=== PATIENT | female | born 1990 | race Caucasian/White ===

== ENCOUNTER 2020-04-12 10:59 | Emergency (ER) | payer OTHER, SELFPAY ==
[2020-04-12 11:17] VITALS: BP 136/77; PULSE 84; RESP 16; TEMP 37.2; O2SAT 100; BMI 22.8
[2020-04-12 11:32] LABS: Glucose Urine UA NEG (NEG); Leukocyte Esterase Urine NEG (NEG); Nitrite Urine NEG (NEG); PH 8.5 (5.0-8.0); Specific Gravity - Urine 1.015 (1.005-1.025); Urine Blood NEG (NEG); Urine Ketones NEG (NEG); Urine Protein NEG (NEG-TRACE)
[2020-04-12 11:33] LABS: Appearance Urine CLEAR; Color Urine YELLOW
--- NOTE | 2020-04-12 11:37 | ED_ITS ---
HPI - Female Genitourinary General Chief complaint: Urogenital-Female Stated complaint: STD CHECK Time Seen by Provider: 04/12/20 11:37 Related Data Allergies Allergy/AdvReac Type Severity Reaction Status Date / Time No Known Allergies Allergy Unverified 03/27/20 19:48 [No Known Allergies*] Physical Exam Vital Signs and I&O and Narrative: Vital Signs and I&O: Vital Signs Temp 98.9 F 04/12/20 11:17 Pulse 84 04/12/20 11:17 Resp 16 04/12/20 11:17 BP 136/77 04/12/20 11:17 Pulse Ox 100 04/12/20 11:17 Intake & Output 04/11/20 04/12/20 04/12/20 18:59 06:59 18:59 Weight 70.307 kg Body Mass Index 22.8 MDM - Female Genitourinary Lab Data Labs: Lab Results 04/12/20 Range/Units 11:21 Urine Color YELLOW Urine Appearance CLEAR Urine pH 8.5 H (5.0-8.0) Ur Specific [place] 1.015 (1.005-1.025) Urine Protein NEG (NEG-TRACE) MG/DL Urine Glucose (UA) NEG (NEG) MG/DL Urine Ketones NEG (NEG) MG/DL Urine Blood NEG (NEG) Urine Nitrite NEG (NEG) Ur Leukocyte Esterase NEG (NEG)
--- NOTE | 2020-04-12 12:08 | ED_ITS ---
HPI - Female Genitourinary General Chief complaint: Urogenital-Female Stated complaint: STD CHECK Time Seen by Provider: 04/12/20 11:37 History of Present Illness HPI Narrative: patient complains of noticing a small bump in the left labial area today, she has had no fever no chills no discharge no abdominal pain no pelvic pain no dysuria, she has no new partner and her partner is asymptomatic with no history of herpes or any bumps Related Data Previous Rx's Medication Instructions Recorded valacyclovir [Valtrex] 1,000 mg PO BID 10 Days #20 tab 04/12/20 Allergies Allergy/AdvReac Type Severity Reaction Status Date / Time No Known Allergies Allergy Unverified 03/27/20 19:48 [No Known Allergies*] Review of Systems Review of Systems: there is no fever no chills, no other bumps no pain with urination or frequency of urination no vaginal discharge no abdominal pain no pelvic pain no back pain no nausea no vomiting PMFSH Past Medical History Source: nursing notes reviewed Social History Social History Alcohol intake: unknown Smoking Status: Unknown if ever smoked Use of substances other than those prescribed or required for medical reasons: Unknown Advance Directives: No Advance Directives Information Provided: No Physical Exam Vital Signs and I&O and Narrative: Vital Signs and I&O: Vital Signs Temp 98.9 F 04/12/20 11:17 Pulse 84 04/12/20 11:17 Resp 16 04/12/20 11:17 BP 136/77 04/12/20 11:17 Pulse Ox 100 04/12/20 11:17 Intake & Output 04/11/20 04/12/20 04/12/20 18:59 06:59 18:59 Weight 70.307 kg Body Mass Index 22.8 patient is comfortable, no acute distress A&O x3 and cooperative Neck is supple Respiratory no acute distress Abdomen soft and nontender Genital exam there is a small papule which is not red it does not appear to be vesicular is very small in the left side of the labia there are no surrounding lesions it is not red it is not warm there is no discharge visible externally, no other lesions, internal exam was deferred Extremities full range of motion x4 neuro A&O x3 Course Course Hospital Course: this is not likely to be herpes but is possible that it is the start of a herpes infection so culture was done and patient given a script for Valtrex to use if more lesions developing diagnosis becomes obvious MDM - Female Genitourinary Lab Data Labs: Lab Results 04/12/20 Range/Units 11:21 Urine Color YELLOW Urine Appearance CLEAR Urine pH 8.5 H (5.0-8.0) Ur Specific [place] 1.015 (1.005-1.025) Urine Protein NEG (NEG-TRACE) MG/DL Urine Glucose (UA) NEG (NEG) MG/DL Urine Ketones NEG (NEG) MG/DL Urine Blood NEG (NEG) Urine Nitrite NEG (NEG) Ur Leukocyte Esterase NEG (NEG) Discharge Plan Discharge Clinical Impression: Herpes genitalis Patient Disposition: Home, Self-Care Additional Instructions: there was a very small bump in vaginal area which is most likely irritation from shaving, but is possibly an early lesion of herpes We sent a herpes culture but most important if you develop more red bumps in the area you should start the Valtrex prescription which I gave you Do not start it if no other lesions developed follow with primary care doctor or drawing kiln operator doctor, or [facility] if you have concerns about STDs Prescriptions: New valacyclovir [Valtrex] 1 gram tablet 1,000 mg PO BID 10 Days Qty: 20 RF: 0 Interventions: ED Discharge Assessment Last Done: 04/12/20 12:40 Discharge Date/Time: 04/12/20 12:41
== END 2020-04-12 12:41 | disposition home or self-care (01) ==
PROVIDERS: Physician Assistant Medical; Emergency Provider Emergency Medicine
DX: A60.00 Herpesviral infection of urogenital system, unspecified (principal)
CPT/HCPCS: 36415; 81003; 87255; 99283; 99284

== ENCOUNTER → 2020-09-23 14:09 | Outpatient (BNVA) | payer OTHER, SELFPAY | PROVIDERS: PCP Internal Medicine; Visit Provider Obstetrics & Gynecology | DX: Z34.90 Encounter for supervision of normal pregnancy, unspecified, unspecified trimester (principal) | CPT/HCPCS: 99212 ==

== ENCOUNTER 2020-09-24 10:07 | Outpatient (REF) | payer OTHER, SELFPAY ==
--- NOTE | ~2020-09-24 | US_ITS ---
EXAMINATION: US OBSTETRICAL ULTRASOUND CLINICAL INFORMATION: Uncertain LMP. Check size and dates. COMPARISON: None. LMP: Unknown. TECHNIQUE: Transabdominal and transvaginal first trimester OB ultrasound FINDINGS: The uterus is anteverted and measures 8.6 x 4.4 x 5 cm in dimension. There is an intrauterine gestational sac with yolk sac. Mean sac diameter measures 0.61 cm suggesting gestational age of 5 weeks 1 day. No pole is seen. There is a 4 x 3 x 3 mm cyst in the anterior uterine body. No other focal uterine lesion is seen. The right ovary measures 3 x 1.7 x 2 cm and is normal-appearing. The left ovary measures 4 x 2.7 x 3.7 cm. There is a 2.4 x 2 x 2.9 cm minimally complex left ovarian cyst. There is trace fluid in the left pelvis. US/US OB <= 14 weeks fetus IMPRESSION: Intrauterine gestational sac and yolk sac. Mean sac diameter suggests gestational age of 5 weeks 1 day. No pole seen, question secondary to early gestational age. 2.4 x 2 x 2.9 cm slightly complex left ovarian cyst probably representing a corpus luteal cyst.
--- NOTE | ~2020-09-24 | US_ITS ---
EXAMINATION: US OBSTETRICAL ULTRASOUND CLINICAL INFORMATION: Uncertain LMP. Check size and dates. COMPARISON: None. LMP: Unknown. TECHNIQUE: Transabdominal and transvaginal first trimester OB ultrasound FINDINGS: The uterus is anteverted and measures 8.6 x 4.4 x 5 cm in dimension. There is an intrauterine gestational sac with yolk sac. Mean sac diameter measures 0.61 cm suggesting gestational age of 5 weeks 1 day. No pole is seen. There is a 4 x 3 x 3 mm cyst in the anterior uterine body. No other focal uterine lesion is seen. The right ovary measures 3 x 1.7 x 2 cm and is normal-appearing. The left ovary measures 4 x 2.7 x 3.7 cm. There is a 2.4 x 2 x 2.9 cm minimally complex left ovarian cyst. There is trace fluid in the left pelvis. US/US OB transvaginal IMPRESSION: Intrauterine gestational sac and yolk sac. Mean sac diameter suggests gestational age of 5 weeks 1 day. No pole seen, question secondary to early gestational age. 2.4 x 2 x 2.9 cm slightly complex left ovarian cyst probably representing a corpus luteal cyst.
== END 2020-09-24 10:08 | disposition home or self-care (01) ==
LOC: HO.US 10:07
PROVIDERS: Visit Provider Obstetrics & Gynecology
DX: Z34.90 Encounter for supervision of normal pregnancy, unspecified, unspecified trimester (principal)
CPT/HCPCS: 76801; 76817

== ENCOUNTER → 2020-09-29 11:29 | Outpatient (BNVA) | payer OTHER, SELFPAY | PROVIDERS: Visit Provider Obstetrics & Gynecology ==

== ENCOUNTER → 2020-10-03 08:16 | Outpatient (BNVA) | payer OTHER, SELFPAY | PROVIDERS: Visit Provider Obstetrics & Gynecology | DX: Z64.0 Problems related to unwanted pregnancy (principal) | CPT/HCPCS: 99212 ==

== ENCOUNTER → 2020-10-15 11:14 | Outpatient (BNVA) | payer OTHER, SELFPAY | PROVIDERS: Visit Provider Obstetrics & Gynecology | CPT/HCPCS: 99212 ==

== ENCOUNTER → 2020-11-03 15:01 | Outpatient (BNVA) | payer OTHER, SELFPAY | PROVIDERS: PCP Internal Medicine; Visit Provider Obstetrics & Gynecology ==

== ENCOUNTER 2021-04-20 09:29 | Outpatient (REF) | payer OTHER, SELFPAY ==
[2021-04-20 10:23] LABS: COVID-19 Test Negative (Negative)
== END 2021-04-20 09:30 | disposition home or self-care (01) ==
LOC: HO.LAB 09:29
PROVIDERS: Visit Provider Internal Medicine
DX: Z20.822 Contact with and (suspected) exposure to COVID-19 (principal)
CPT/HCPCS: 36415; 87635; C9803

== ENCOUNTER 2021-11-27 14:20 | Emergency (ER) | payer OTHER, SELFPAY ==
[2021-11-27 14:25] VITALS: BP 113/63; PULSE 115; RESP 20; TEMP 37.8; O2SAT 97; BMI 23.6
[2021-11-27] MEDS: Acetaminophen 325 MG TABLET 650 MG PO (14:33)
[2021-11-27 14:41] LABS: COVID-19 Test Positive (Negative); IDNOW Serial# 55D5AD1C
[2021-11-27 14:57] LABS: IDNOW Serial# 55D5AD1C; Influenza A Negative (Negative); Influenza B2 Negative (Negative)
--- NOTE | 2021-11-27 15:25 | ED.FEVER ---
HPI - Fever General Chief Complaint: Fever Stated Complaint: Fever/Body aches/Nausea Time Seen by Provider: 11/27/21 15:25 Source: patient Mode of arrival: ambulatory Limitations: no limitations History of Present Illness HPI Narrative: 31-year-old female presents to the ER with acute onset of headache, body aches, fever and chills that started this morning. She generally does not feel well. She felt like she had a fever this morning, came to the ER was found have a fever 101. She was given Tylenol but vomited it back up. She denies any abdominal pain or diarrhea. She reports some mild ongoing nausea. She denies chance of and states she is on her menses. She denies any known sick contacts. She has not vaccinated for COVID-19. She says her breathing is ?short but she has no chest pain. She has a slight cough but is not bringing up any phlegm. MD elicited complaint: fever, malaise and weakness Onset (ago): hour(s) Measured temperature: 101 F Exacerbating factors: nothing Relieving factors: nothing Associated symptoms: chills, myalgias, headache, sore throat, cough, shortness of breath, nausea and vomiting Treatments prior to arrival fever: none Related Data Previous Rx's Medication Instructions Recorded acetaminophen 650 mg 650 mg PO Q8H PRN #60 tab 10/03/20 tablet,extended release (Tylenol 8 Hour) ibuprofen 800 mg tablet 800 mg PO Q8H PRN #60 tab 10/03/20 misoprostol 200 mcg tablet 800 mcg VAGINAL ONCE #4 tab 10/03/20 oxycodone 5 mg capsule 5 mg PO Q6H PRN #10 cap 10/03/20 promethazine 25 mg tablet 25 mg PO Q6H PRN #10 tab 10/03/20 ondansetron 4 mg disintegrating 4 mg PO Q6H PRN #7 tab 11/27/21 tablet Allergies Allergy/AdvReac Type Severity Reaction Status Date / Time No Known Allergies Allergy Verified 11/03/20 15:01 [No Known Allergies*] Review of Systems Review of Systems: Constitutional: + Fever, + Chills ENT/Mouth: + sore throat, + Rhinorrhea Cardiovascular: No Chest Pain, + SOB, No Orthopnea, No Edema Respiratory: +Cough, No Sputum, No Wheezing, + dyspnea Gastrointestinal: + Nausea, + Vomiting, No Diarrhea, No abdominal Pain Musculoskeletal: No joint pain, + Myalgias Skin: No Skin Lesions, No rash Neuro: + Weakness, No Numbness, No Dizziness, + Headache Psych: + Anxiety/Panic Heme/Lymph: No Bruising, No Lymphadenopathy PMFSH Past Medical History Medical History Migraines Unwanted Social History Social History Alcohol intake: current Alcohol intake frequency: holidays/special occasions only Advance Directives: No Advance Directives Information Provided: No Gender identity: Female Physical Exam Vital Signs: Vital Signs: Last Vital Signs Temp 100.1 F 11/27/21 14:25 Pulse 115 H 11/27/21 14:25 Resp 20 11/27/21 14:25 BP 113/63 11/27/21 14:25 Pulse Ox 97 11/27/21 14:25 BMI result Body Mass Index 23.6 Appearance: Alert. Oriented X3. No acute distress. HEENT: normal inspection. moist mucus membranes. CVS: Normal heart rate and rhythm. Pulses normal. Respiratory: No respiratory distress. Lungs CTAB. Skin: Skin warm and dry. Normal skin color. Normal skin turgor. No rashes. Extremities: no LE edema, no calf tenderness. Neuro: Oriented X 3. Grossly normal, nonfocal Course Course Course Narrative: 31 y/o female presenting with hot/cold flashes, chills, body aches since this morning. Unvaccianated for COVID. Tachycardic and febrile on arrival. Given tylenol. Patient found to be COVID +. SpO2 97%. Lungs are CTAB. She has been counseled on symptomatic management and return precautions, encouraged to monitor her SpO2 with an at home pulse oximeter. Stable for d/c home. MDM - Fever Lab Data Labs: Lab Results 11/27/21 11/27/21 Range/Units 14:30 14:30 COVID-19 (LINDA) Positive A (Negative) COVID-19 Clin Com See Note Influenza Type A (NANCY) Negative (Negative) Influenza Type B (NANCY) Negative (Negative) Influenza A & B Note See Note Critical Care Time Critical Care Time Critical Care Time: No Discharge Plan Discharge Clinical Impression: COVID-19 Patient Disposition: Home, Self-Care Instructions: Covid-19 Viral Syndrome and Novel Coronavirus (ED) Hey/Ath Additional Instructions: You were found to be COVID-19 POSITIVE today. Your exam and oxygen levels were normal. Rest. Drink plenty of fluids. Do not go out in public for the next 7- 10 days. Take over the counter cold/flu medications as needed for your symptoms. Take Tylenol and/or Motrin as needed for fevers and body aches. Follow up with your doctor this week. If you develop new or worsening symptoms call 911 or come back to the ER for further evaluation. Prescriptions: New ondansetron 4 mg tablet,disintegrating 4 mg PO Q6H PRN (Reason: nausea and vomiting) Qty: 7 0RF No Action misoprostol 200 mcg tablet 800 mcg vaginal ONCE Qty: 4 1RF ibuprofen 800 mg tablet 800 mg PO Q8H PRN (Reason: pain) Qty: 60 1RF acetaminophen [Tylenol 8 Hour] 650 mg tablet extended release 650 mg PO Q8H PRN (Reason: pain) Qty: 60 0RF oxycodone 5 mg capsule 5 mg PO Q6H PRN (Reason: pain) Qty: 10 0RF promethazine 25 mg tablet 25 mg PO Q6H PRN (Reason: nausea and vomiting) Qty: 10 0RF Stand Alone Forms: Work/School Release Interventions: ED Discharge Assessment Last Done: 11/27/21 15:37 Discharge Date/Time: 11/27/21 15:38
[2021-11-27 15:46] VITALS: TEMP 38.3
== END 2021-11-27 15:38 | disposition home or self-care (01) ==
PROVIDERS: Emergency Provider Internal Medicine
DX: U07.1 COVID-19 (principal)
CPT/HCPCS: 87502; 87635; 99283

== ENCOUNTER 2022-06-24 15:15 | Emergency (ER) | payer OTHER, SELFPAY ==
[2022-06-24 16:14] VITALS: BP 154/97; PULSE 96; RESP 18; TEMP 37.1; O2SAT 98; BMI 24.3
--- NOTE | 2022-06-24 16:14 | ED.URI ---
HPI - URI/Sore Throat General Chief Complaint: Upper Respiratory Symptoms <LINDA Romero Last Filed: 06/24/22 16:17> Stated Complaint: Dizziness, diff breathing, vomiting <LINDA Romero Last Filed: 06/24/22 16:17> Time Seen by Provider: 06/24/22 17:33 <LINDA Romero - Last Filed: 06/24/22 16:17> Source: patient <LINDA Tate Last Filed: 06/24/22 18:52> Mode of arrival: ambulatory <LINDA Tate Last Filed: 06/24/22 18:52> Limitations: no limitations <LINDA Tate Last Filed: 06/24/22 18:52> History of Present Illness HPI Narrative: 32-year-old female presents to the ER for evaluation of 2 days of not feeling well. She states she has had cough, runny nose, sore throat, body aches and headache. She also has been nauseous and vomiting several times per day. She states she is unable to keep down anything. She denies any associated abdominal pain or fevers. She states her menses are regular, only 3 days at a time. Unsure when her last menstrual cycle was. She may be . She denies any vaginal bleeding or discharge. <LINDA Tate Last Filed: 06/24/22 18:52> MD elicited complaint: cough, sore throat and other ( nausea vomiting) <LINDA Tate Last Filed: 06/24/22 18:52> Onset (ago): day(s) (2) <LINDA Tate Last Filed: 06/24/22 18:52> Consistency: progressively worsening <LINDA Tate Last Filed: 06/24/22 18:52> Severity: moderate <LINDA Tate Last Filed: 06/24/22 18:52> Exacerbating factors: nothing <LINDA Tate Last Filed: 06/24/22 18:52> Relieving factors: nothing <LINDA Tate Last Filed: 06/24/22 18:52> Associated symptoms: myalgias, headache, nasal congestion, sore throat, cough, nausea and vomiting <LINDA Tate Last Filed: 06/24/22 18:52> Treatments prior to arrival: none <LINDA Tate Last Filed: 06/24/22 18:52> Related Data Home Medications: Previous Rx's Medication Instructions Recorded acetaminophen 650 mg 650 mg PO Q8H PRN pain #60 tabs 10/03/20 tablet,extended release (Tylenol 8 Hour) ibuprofen 800 mg tablet 800 mg PO Q8H PRN pain #60 tabs 10/03/20 misoprostol 200 mcg tablet 800 mcg vaginal ONCE #4 tabs 10/03/20 oxycodone 5 mg capsule 5 mg PO Q6H PRN pain #10 caps 10/03/20 promethazine 25 mg tablet 25 mg PO Q6H PRN nausea and 10/03/20 vomiting #10 tabs ondansetron 4 mg disintegrating 4 mg PO Q6H PRN nausea and 11/27/21 tablet vomiting #7 tabs ondansetron 4 mg disintegrating 4 mg PO Q8H PRN nausea and 06/24/22 tablet vomiting #10 tabs <LINDA Romero Last Filed: 06/24/22 16:17> Allergies/Adverse Reactions: Allergies Allergy/AdvReac Type Severity Reaction Status Date / Time No Known Allergies Allergy Verified 11/03/20 15:01 [No Known Allergies*] <LINDA Romero Last Filed: 06/24/22 16:17> Review of Systems Review of Systems: Constitutional: No Fever, + Chills ENT/Mouth: + sore throat, No Rhinorrhea, No Swallowing Difficulty Cardiovascular: No Chest Pain, No SOB, No Orthopnea, No Edema Respiratory: + Cough, No Sputum, No Wheezing, No dyspnea Gastrointestinal: + Nausea, + Vomiting, No Diarrhea, No abdominal Pain Genitourinary: No Dysuria, No Urinary Frequency, No Hematuria Musculoskeletal: No joint pain, No Myalgias Skin: No Skin Lesions, No rash Neuro: + Weakness, No Numbness, No Dizziness, + Headache Psych: No Anxiety/Panic, No Depression Heme/Lymph: No Bruising, No Lymphadenopathy Endocrine: No Polyuria, No Polydipsia <LINDA Tate Last Filed: 06/24/22 18:52> [facility] Past Medical History Medical History: Medical History Migraines Unwanted <LINDA Romero - Last Filed: 06/24/22 16:17> Social History Social History: Social History Alcohol intake: current Alcohol intake frequency: holidays/special occasions only Advance Directives: No Advance Directives Information Provided: No Gender identity: Female <LINDA Romero - Last Filed: 06/24/22 16:17> Physical Exam Vital Signs: Vital Signs: Last Vital Signs Temp 98.7 F 06/24/22 16:14 Pulse 96 06/24/22 16:14 Resp 18 06/24/22 16:14 BP 154/97 H 06/24/22 16:14 Pulse Ox 98 06/24/22 16:14 O2 Del Method 06/24/22 16:14 BMI result Body Mass Index 24.3 <LINDA Romero - Last Filed: 06/24/22 16:17> Vital Signs: Last Vital Signs Temp 98.7 F 06/24/22 16:14 Pulse 96 06/24/22 16:14 Resp 18 06/24/22 16:14 BP 154/97 H 06/24/22 16:14 Pulse Ox 98 06/24/22 16:14 O2 Del Method 06/24/22 16:14 BMI result Body Mass Index 24.3 <LINDA Tate - Last Filed: 06/24/22 18:52> Appearance: Alert. Oriented X3. No acute distress. Eyes: Pupils equal, round and reactive to light. ENT: Pharynx normal. Moist mucous membranes. Neck: Normal inspection. Neck supple. CVS: Normal heart rate and rhythm. Pulses normal. Respiratory: No respiratory distress. Breath sounds normal. Abdomen: Soft and nontender. +BS x4 Skin: Skin warm and dry. Normal skin color. Normal skin turgor. No rashes. Extremities: No lower extremity edema. Neuro: Oriented X 3. No motor deficit. No sensory deficit. <LINDA Tate - Last Filed: 06/24/22 18:52> Course Course Course Narrative: RME- 16:17PM - 32yoF presenting ot the ED c c/o subjective fevers/chills/fatigue/malaise, lightheadedness, sore throat, nasal congestion/rhinorrhea, cough, nausea/vomiting for the past 2 days worse today. Reports that she is unable to keep anything down. Denies any other symptoms complaints or concerns at this time. Plan: Labs, UA, test, chest x-ray, COVID/RSV/flu swab. Patient is stable. Patient will be sent back to the waiting room for further evaluation treatment in the ER. <LINDA Romero - Last Filed: 06/24/22 16:17> Reevaluation(s) Reevaluation #1: Patient found to be with a beta hCG of 13,000. Rest of her lab workup was unremarkable. She was advised of her diagnosis. She has history of a 6-year-old daughter at home. she will start a vitamin.She is negative For COVID, flu, RSV. Her symptoms most likely due to the viral illness on top of 1st trimester nausea vomiting. Will prescribe p.r.n. Zofran. 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 <LINDA Tate - Last Filed: 06/24/22 18:52> Medications Administered Discontinued Medications Generic Name Dose Route Start Last Admin Trade Name Freq PRN Reason Stop Dose Admin Sodium Chloride 1,000 mls @ 999 mls/hr 06/24/22 17:45 06/24/22 18:00 Ns IV 06/24/22 18:45 999 mls/hr .Q1H1M HAILY Administration Ondansetron HCl 4 mg 06/24/22 17:33 06/24/22 17:59 Ondansetron Hcl 4 Mg/2 Ml Vial IVPUSH 06/24/22 17:34 4 mg ONCE ONE Administration <LINDA Romero - Last Filed: 06/24/22 16:17> Medications Administered Discontinued Medications Generic Name Dose Route Start Last Admin Trade Name Freq PRN Reason Stop Dose Admin Sodium Chloride 1,000 mls @ 999 mls/hr 06/24/22 17:45 06/24/22 18:00 Ns IV 06/24/22 18:45 999 mls/hr .Q1H1M HAILY Administration Ondansetron HCl 4 mg 06/24/22 17:33 06/24/22 17:59 Ondansetron Hcl 4 Mg/2 Ml Vial IVPUSH 06/24/22 17:34 4 mg ONCE ONE Administration <LINDA Tate - Last Filed: 06/24/22 18:52> Medical Decision Making Lab Data Result Diagrams: : 06/24/22 17:11 06/24/22 17:11 <LINDA Romero - Last Filed: 06/24/22 16:17> Labs: Lab Results 06/24/22 06/24/22 06/24/22 Range/Units 17:06 17:06 17:11 WBC 10.9 H (4.8-10.8) X10*3/uL RBC 4.62 (4.20-5.50) X10*6/uL Hgb 13.3 (12.0-16.0) g/dl Hct 38.6 (37.0-47.0) % MCV 83.5 (80.0-98.0) fL MCH 28.8 (27.0-33.0) pg MCHC 34.5 (31.0-35.0) g/dl RDW 12.8 (11.0-16.0) % Plt Count 217 (160-400) X10*3/uL MPV 11.1 (9.4-12.3) fL Immature Gran % (Auto) 0.4 (0.0-0.4) % Neut % (Auto) 74.9 H (45-73) % Lymph % (Auto) 14.5 L (20-40) % Holmes % (Auto) 7.1 (2-11) % Eos % (Auto) 2.6 (0-4) % Baso % (Auto) 0.5 (0-2) % Lymph # (Auto) 1.6 (1.2-4.9) X10*3/uL Holmes # (Auto) 0.8 (0.1-1.2) X10*3/uL Eos # (Auto) 0.3 (0.0-0.4) X10*3/uL Baso # (Auto) 0.1 (0.0-0.2) X10*3/uL Abs Immat Gran (auto) 0.04 H (0.00-0.03) X10*3/uL Absolute Neuts (auto) 8.2 (2.0-8.3) x10*3/uL Absolute Nucleated RBC 0.000 (0.0-0.012) X10*3/uL Nucleated RBC % (auto) 0.0 (0.0-0.2) /100WBC Sodium (135-145) mmol/L Potassium (3.3-5.1) mmol/L Chloride (96-108) mmol/L Carbon Dioxide (22-29) mmol/L Anion Gap (12-20) BUN (9-16) mg/dL Creatinine (0.5-1.4) mg/dL Estim Creat Clear Calc Estimated GFR Random Glucose (60-115) mg/dL Calcium (8.4-10.2) mg/dL Magnesium (1.6-2.6) mg/dL Total Bilirubin (0.0-1.0) mg/dL AST (5-31) U/L ALT (0-31) U/L Alkaline Phosphatase (39-117) U/L Total Protein (6.5-8.0) g/dL Albumin (3.5-5.0) g/dL Beta HCG, Quant mIU/mL Urine Color Yellow Urine Appearance Clear Urine pH 7.0 (5.0-9.0) Ur Specific [place] 1.015 (1.005-1.025) Urine Protein Negative (Neg-Trace) mg/dL Urine Glucose (UA) Negative (Negative) mg/dL Urine Ketones Trace (Negative) mg/dL Urine Blood Negative (Negative) Urine Nitrite Negative (Negative) Ur Leukocyte Esterase Negative (Negative) Influenza Type A (PCR) NEGATIVE (Negative) Influenza Type B (PCR) NEGATIVE (Negative) RSV RNA Qual (PCR) NEGATIVE (Negative) SARS-CoV-2 RNA (RT-PCR) NEGATIVE (Negative) 06/24/22 Range/Units 17:11 WBC (4.8-10.8) X10*3/uL RBC (4.20-5.50) X10*6/uL Hgb (12.0-16.0) g/dl Hct (37.0-47.0) % MCV (80.0-98.0) fL MCH (27.0-33.0) pg MCHC (31.0-35.0) g/dl RDW (11.0-16.0) % Plt Count (160-400) X10*3/uL MPV (9.4-12.3) fL Immature Gran % (Auto) (0.0-0.4) % Neut % (Auto) (45-73) % Lymph % (Auto) (20-40) % Holmes % (Auto) (2-11) % Eos % (Auto) (0-4) % Baso % (Auto) (0-2) % Lymph # (Auto) (1.2-4.9) X10*3/uL Holmes # (Auto) (0.1-1.2) X10*3/uL Eos # (Auto) (0.0-0.4) X10*3/uL Baso # (Auto) (0.0-0.2) X10*3/uL Abs Immat Gran (auto) (0.00-0.03) X10*3/uL Absolute Neuts (auto) (2.0-8.3) x10*3/uL Absolute Nucleated RBC (0.0-0.012) X10*3/uL Nucleated RBC % (auto) (0.0-0.2) /100WBC Sodium 135 (135-145) mmol/L Potassium 3.9 (3.3-5.1) mmol/L Chloride 104 (96-108) mmol/L Carbon Dioxide 25 (22-29) mmol/L Anion Gap 10 L (12-20) BUN 6 L (9-16) mg/dL Creatinine 0.61 (0.5-1.4) mg/dL Estim Creat Clear Calc 137.0 Estimated GFR > 60 Random Glucose 101 (60-115) mg/dL Calcium 9.1 (8.4-10.2) mg/dL Magnesium 1.9 (1.6-2.6) mg/dL Total Bilirubin 0.5 (0.0-1.0) mg/dL AST 13 (5-31) U/L ALT 9 (0-31) U/L Alkaline Phosphatase 53 (39-117) U/L Total Protein 6.9 (6.5-8.0) g/dL Albumin 3.9 (3.5-5.0) g/dL Beta HCG, Quant 88802 mIU/mL Urine Color Urine Appearance Urine pH (5.0-9.0) Ur Specific [place] (1.005-1.025) Urine Protein (Neg-Trace) mg/dL Urine Glucose (UA) (Negative) mg/dL Urine Ketones (Negative) mg/dL Urine Blood (Negative) Urine Nitrite (Negative) Ur Leukocyte Esterase (Negative) Influenza Type A (PCR) (Negative) Influenza Type B (PCR) (Negative) RSV RNA Qual (PCR) (Negative) SARS-CoV-2 RNA (RT-PCR) (Negative) <LINDA Romero - Last Filed: 06/24/22 16:17> Lab Results 06/24/22 06/24/22 06/24/22 Range/Units 17:06 17:06 17:11 WBC 10.9 H (4.8-10.8) X10*3/uL RBC 4.62 (4.20-5.50) X10*6/uL Hgb 13.3 (12.0-16.0) g/dl Hct 38.6 (37.0-47.0) % MCV 83.5 (80.0-98.0) fL MCH 28.8 (27.0-33.0) pg MCHC 34.5 (31.0-35.0) g/dl RDW 12.8 (11.0-16.0) % Plt Count 217 (160-400) X10*3/uL MPV 11.1 (9.4-12.3) fL Immature Gran % (Auto) 0.4 (0.0-0.4) % Neut % (Auto) 74.9 H (45-73) % Lymph % (Auto) 14.5 L (20-40) % Holmes % (Auto) 7.1 (2-11) % Eos % (Auto) 2.6 (0-4) % Baso % (Auto) 0.5 (0-2) % Lymph # (Auto) 1.6 (1.2-4.9) X10*3/uL Holmes # (Auto) 0.8 (0.1-1.2) X10*3/uL Eos # (Auto) 0.3 (0.0-0.4) X10*3/uL Baso # (Auto) 0.1 (0.0-0.2) X10*3/uL Abs Immat Gran (auto) 0.04 H (0.00-0.03) X10*3/uL Absolute Neuts (auto) 8.2 (2.0-8.3) x10*3/uL Absolute Nucleated RBC 0.000 (0.0-0.012) X10*3/uL Nucleated RBC % (auto) 0.0 (0.0-0.2) /100WBC Sodium (135-145) mmol/L Potassium (3.3-5.1) mmol/L Chloride (96-108) mmol/L Carbon Dioxide (22-29) mmol/L Anion Gap (12-20) BUN (9-16) mg/dL Creatinine (0.5-1.4) mg/dL Estim Creat Clear Calc Estimated GFR Random Glucose (60-115) mg/dL Calcium (8.4-10.2) mg/dL Magnesium (1.6-2.6) mg/dL Total Bilirubin (0.0-1.0) mg/dL AST (5-31) U/L ALT (0-31) U/L Alkaline Phosphatase (39-117) U/L Total Protein (6.5-8.0) g/dL Albumin (3.5-5.0) g/dL Beta HCG, Quant mIU/mL Urine Color Yellow Urine Appearance Clear Urine pH 7.0 (5.0-9.0) Ur Specific [place] 1.015 (1.005-1.025) Urine Protein Negative (Neg-Trace) mg/dL Urine Glucose (UA) Negative (Negative) mg/dL Urine Ketones Trace (Negative) mg/dL Urine Blood Negative (Negative) Urine Nitrite Negative (Negative) Ur Leukocyte Esterase Negative (Negative) Influenza Type A (PCR) NEGATIVE (Negative) Influenza Type B (PCR) NEGATIVE (Negative) RSV RNA Qual (PCR) NEGATIVE (Negative) SARS-CoV-2 RNA (RT-PCR) NEGATIVE (Negative) 06/24/22 Range/Units 17:11 WBC (4.8-10.8) X10*3/uL RBC (4.20-5.50) X10*6/uL Hgb (12.0-16.0) g/dl Hct (37.0-47.0) % MCV (80.0-98.0) fL MCH (27.0-33.0) pg MCHC (31.0-35.0) g/dl RDW (11.0-16.0) % Plt Count (160-400) X10*3/uL MPV (9.4-12.3) fL Immature Gran % (Auto) (0.0-0.4) % Neut % (Auto) (45-73) % Lymph % (Auto) (20-40) % Holmes % (Auto) (2-11) % Eos % (Auto) (0-4) % Baso % (Auto) (0-2) % Lymph # (Auto) (1.2-4.9) X10*3/uL Holmes # (Auto) (0.1-1.2) X10*3/uL Eos # (Auto) (0.0-0.4) X10*3/uL Baso # (Auto) (0.0-0.2) X10*3/uL Abs Immat Gran (auto) (0.00-0.03) X10*3/uL Absolute Neuts (auto) (2.0-8.3) x10*3/uL Absolute Nucleated RBC (0.0-0.012) X10*3/uL Nucleated RBC % (auto) (0.0-0.2) /100WBC Sodium 135 (135-145) mmol/L Potassium 3.9 (3.3-5.1) mmol/L Chloride 104 (96-108) mmol/L Carbon Dioxide 25 (22-29) mmol/L Anion Gap 10 L (12-20) BUN 6 L (9-16) mg/dL Creatinine 0.61 (0.5-1.4) mg/dL Estim Creat Clear Calc 137.0 Estimated GFR > 60 Random Glucose 101 (60-115) mg/dL Calcium 9.1 (8.4-10.2) mg/dL Magnesium 1.9 (1.6-2.6) mg/dL Total Bilirubin 0.5 (0.0-1.0) mg/dL AST 13 (5-31) U/L ALT 9 (0-31) U/L Alkaline Phosphatase 53 (39-117) U/L Total Protein 6.9 (6.5-8.0) g/dL Albumin 3.9 (3.5-5.0) g/dL Beta HCG, Quant 01099 mIU/mL Urine Color Urine Appearance Urine pH (5.0-9.0) Ur Specific [place] (1.005-1.025) Urine Protein (Neg-Trace) mg/dL Urine Glucose (UA) (Negative) mg/dL Urine Ketones (Negative) mg/dL Urine Blood (Negative) Urine Nitrite (Negative) Ur Leukocyte Esterase (Negative) Influenza Type A (PCR) (Negative) Influenza Type B (PCR) (Negative) RSV RNA Qual (PCR) (Negative) SARS-CoV-2 RNA (RT-PCR) (Negative) <LINDA Tate - Last Filed: 06/24/22 18:52> Critical Care Time Critical Care Time Critical Care Time: No <LINDA Tate - Last Filed: 06/24/22 18:52> Discharge Plan Discharge Clinical Impression: , Acute viral syndrome <LINDA Romero Last Filed: 06/24/22 16:17> Patient Disposition: Home, Self-Care <LINDA Romero - Last Filed: 06/24/22 16:17> Instructions: (ED), Viral Syndrome (ED) <LINDA Romero - Last Filed: 06/24/22 16:17> Additional Instructions: Your lab workup today was unremarkable. You tested negative for influenza, COVID, and RSV. Your hormone was 12,950, which could be anywhere from 5-11 weeks gestation. Recommend following up with OBGYN. Name and number below. take a vitamin daily. Take Tylenol as needed for headaches and body aches. Take the prescribed medication as needed for nausea vomiting. Also recommend [id number] Unisom to help prevent nausea and vomiting associated with . <LINDA Romero - Last Filed: 06/24/22 16:17> Prescriptions: New ondansetron 4 mg tablet,disintegrating 4 mg PO Q8H PRN (Reason: nausea and vomiting) Qty: 10 0RF No Action ondansetron 4 mg tablet,disintegrating 4 mg PO Q6H PRN (Reason: nausea and vomiting) Qty: 7 0RF misoprostol 200 mcg tablet 800 mcg vaginal ONCE Qty: 4 1RF ibuprofen 800 mg tablet 800 mg PO Q8H PRN (Reason: pain) Qty: 60 1RF acetaminophen [Tylenol 8 Hour] 650 mg tablet extended release 650 mg PO Q8H PRN (Reason: pain) Qty: 60 0RF oxycodone 5 mg capsule 5 mg PO Q6H PRN (Reason: pain) Qty: 10 0RF promethazine 25 mg tablet 25 mg PO Q6H PRN (Reason: nausea and vomiting) Qty: 10 0RF <LINDA Romero - Last Filed: 06/24/22 16:17> Referrals: Howard Warren MD [Physician] - <LINDA Romero - Last Filed: 06/24/22 16:17>
[2022-06-24 17:24] LABS: MANUAL DIFF FLAG NO
[2022-06-24 17:27] LABS: Appearance Urine Clear; Color Urine Yellow; Glucose Urine UA Negative (Negative); Leukocyte Esterase Urine Negative (Negative); Nitrite Urine Negative (Negative); Specific Gravity - Urine 1.015 (1.005-1.025); Urine Blood Negative (Negative); Urine Ketones Trace mg/dL (Negative); Urine Protein Negative (Neg-Trace)
[2022-06-24 17:27] LABS: Basophils Absolute Auto 0.1 X10*3/uL (0.0-0.2); Basophils Percent Auto 0.5 % (0-2); Eosinophils Absolute Auto 0.3 X10*3/uL (0.0-0.4); Eosinophils Percent Auto 2.6 % (0-4); Hematocrit 38.6 % (37.0-47.0); Hemoglobin 13.3 g/dl (12.0-16.0); Imm Gran Abs Auto 0.04 X10*3/uL (0.00-0.03); Imm Gran Pct Auto 0.4 % (0.0-0.4); Lymphocytes Absolute Auto 1.6 X10*3/uL (1.2-4.9); Lymphocytes Percent Auto 14.5 % (20-40); Mean Corpuscular HGB Conc 34.5 g/dl (31.0-35.0); Mean Corpuscular Hemoglobin 28.8 pg (27.0-33.0); Mean Corpuscular Volume 83.5 fL (80.0-98.0); Mean Platelet Volume 11.1 fL (9.4-12.3); Monocytes Absolute Auto 0.8 X10*3/uL (0.1-1.2); Monocytes Percent Auto 7.1 % (2-11); Neutrophils Absolute Auto 8.2 x10*3/uL (2.0-8.3); Neutrophils Percent Auto 74.9 % (45-73); Platelet Count 217 X10*3/uL (160-400); Red Blood Count 4.62 X10*6/uL (4.20-5.50); Red Cell Distribution Width 12.8 % (11.0-16.0); White Blood Count 10.9 X10*3/uL (4.8-10.8)
[2022-06-24 17:45] LABS: Alanine Aminotransferase 9 U/L (0-31); Albumin Level 3.9 g/dL (3.5-5.0); Alkaline Phosphatase 53 U/L (39-117); Anion Gap 10 (12-20); Aspartate Amino Transferase 13 U/L (5-31); Bilirubin Total 0.5 mg/dL (0.0-1.0); Blood Urea Nitrogen 6 mg/dL (9-16); Calcium 9.1 mg/dL (8.4-10.2); Carbon Dioxide 25 mmol/L (22-29); Chloride 104 mmol/L (96-108); Estimated Glomerular Filt Rate > 60; Glucose Random 101 mg/dL (60-115); HCG Quantitative 12950 mIU/mL; Magnesium 1.9 mg/dL (1.6-2.6); Potassium 3.9 mmol/L (3.3-5.1); Sodium 135 mmol/L (135-145); Total Protein 6.9 g/dL (6.5-8.0)
[2022-06-24] MEDS: ondansetron HCL 4 MG/2 ML VIAL IVPUSH (17:59)
[2022-06-24] MEDS: 0.9 % Sodium Chloride 1,000 ML 999 ML IV (18:00)
[2022-06-24 18:02] LABS: Influenza A PCR NEGATIVE (Negative); Influenza B PCR NEGATIVE (Negative); Resp Syncy Virus RNA Qual PCR NEGATIVE (Negative); SARS COV2 PCR INHOUSE NEGATIVE (Negative)
== END 2022-06-24 19:39 | disposition home or self-care (01) ==
PROVIDERS: Physician Assistant Medical; Emergency Provider Internal Medicine
DX: B34.9 Viral infection, unspecified (principal); J06.9 Acute upper respiratory infection, unspecified; R42 Dizziness and giddiness; Z20.822 Contact with and (suspected) exposure to COVID-19; Z79.899 Other long term (current) drug therapy
CPT/HCPCS: 0241U; 36415; 80053; 81003; 83735; 84702; 85025; 96374; 99283; 99284; J2405

== ENCOUNTER 2024-11-24 20:55 | Emergency (ER) | payer OTHER, SELFPAY ==
[2024-11-24 21:09] VITALS: BP 146/78; PULSE 130; O2SAT 98; BMI 24.2
[2024-11-24 21:19] VITALS: BP 135/84; PULSE 122; RESP 20; TEMP 37.2; O2SAT 97
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
[2024-11-24] MEDS: Acetaminophen 325 MG TABLET 975 MG PO (22:07)
[2024-11-24 22:14] VITALS: BP 135/84; PULSE 122; RESP 20; TEMP 37.2; O2SAT 97
== END 2024-11-24 22:14 | disposition home or self-care (01) ==
PROVIDERS: Emergency Provider Emergency Medicine
DX: F10.129 Alcohol abuse with intoxication, unspecified (principal)
CPT/HCPCS: 99283; 99284

== ENCOUNTER 2025-05-31 10:56 | Outpatient (REF) | payer MEDICAID, SELFPAY ==
--- OUTSIDE RECORDS SUMMARY | 2025-05-31 10:15 | XMS_ITS | Encounter Summary ---
Author Organization [employer] Address [address] [place] [address] [address], [place] [address] Care Team Providers Care Agile Test Lead Name Role Phone Joselin Hogan NP Primary Care Provider [phone] Reason for Referral * Consultation (Routine) - Authorized Specialty Diagnoses / Procedures Referred By Contlio t Referred To Contact Dental Margin Analyst / Dentistry Diagnoses Healthcare maintenance Joselin Hogan NP [address] [place] [address] Phone: tel: fax: Referral ID Status Reason Start Date Expiration Date Visits Requested Visits Authorized [id number] Authorized Consult and Treat 05/31/2025 05/31/2026 1 1 Encounter Details Date Type Department Care Team (Latest Contact Info) Description 05/31/2025 10:15 AM EST Office Visit [facility] MEDICINE [address] [place] [phone] Joselin Hogan NP [address] [place], [place] [phone] Healthcare maintenance (Primary Dx); Fatigue, unspecified type; Routine screening for STI (sexually transmitted infection); History of gestational diabetes; Migraine without aura and without status migrainosus, not intractable; Encounter for initial prescription of contraceptive pills; Chronic pain of both knees Social History Tobacco Use Types Packs/Day Years Used Date Smoking Tobacco: Never Passive Smoke Exposure: Never Smokeless Tobacco: Never Tobacco Cessation:Counseling Given: Not Answered Depression Answer Date Recorded Patient Health Questionnaire-9 Score 0 05/31/2025 Patient Health Questionnaire-9 Score 0 05/31/2025 Last PHQ-9: Questionnaire Data Not on file 1 07/31/2024 Housing Stability Answer Date Recorded What is your housing situation today? I have liana knutson 05/31/[address] you li ve. Do you have problems with any of the following? None of the above 05/31/2025 Food Insecurity Answer Date Recorded Within the past 12 months, y ou worried that your food would run out before you got money to buy more: Never True 05/31/2025 Within the past 12 months,th e food you bought just didn't last and you didn't have enough money to get more: Never True Transportation Answer Date Recorded In the past 12 months, has l ack of transportation kept you from medical appts, meetings, work or from getting things needed for daily living? No 05/31/2025 Utilities Answer Date Recorded In the past 12 months, has t he electric, gas, oil or water company threatened to shut off services in your home? No 05/31/2025 Depression Answer Date Recorded Patient Health Questionnaire-2 Score 0 05/31/2025 Internet Access Answer Date Recorded Internet Access Q1 Yes 05/31/2025 Internet Access Q2 Not on file 05/31/2025 Comments Unknown Sex and Gender Information Value Date Recorded Sex Assigned at Female 05/23/2025 11:49 AM EST Legal Sex Female 2:47 AM EDT Gender Identity Female 05/23/2025 11:49 AM EST Sexual Orientation Straight 05/23/2025 11 :49 AM EST documented as of this encounter Last Filed Vital Signs Vital Sign Reading Time Taken Comments Blood Pressure 128/78 05/31/2025 10:11 AM EST Pulse 84 05/31/2025 10:11 AM EST Temperature 36.6 C (97.9 F) 05/31/2025 10:11 AM EST Respiratory Rate 16 05/31/2025 10:11 AM EST Oxygen Saturation 99% 05/31/2025 10:11 AM EST Inhaled Oxygen Concentration - - Weight 82.8 kg (182 lb 8 oz) 05/31/2025 10:11 AM EST Height 173.9 cm (5' 8.46 ) 05/31/2025 10:[address] Body Mass Index 27.38 05/31/2025 10:11 AM EST documented in this encounter Functional Status * Over the past 2 weeks, how often have you been bothered by any of the following problems? Question Answer Date of Assessment Author Patient Health Questionnaire-2 Score 0 05/31/2025 11:04 AM Prisca Guy [place] * Little interest or pleasure in doing things Answer Date of Assessment Author Not at all 05/31/2025 11:04 AM Prisca Aguilar [place], [place] * Feeling down, depressed, or hopeless Answer Date of Assessment Author Not at all 05/31/2025 11:04 AM Prisca Aguilar [place], [place] * Trouble falling or staying asleep, or sleeping too much Answer Date of Assessment Author Not at all 05/31/2025 11:04 AM Prisca Aguilar [place], [place] * Feeling tired or having little energy Answer Date of Assessment Author Not at all 05/31/2025 11:04 AM Prisca Aguilar [place], [place] * Poor appetite or overeating Answer Date of Assessment Author Not at all 05/31/2025 11:04 AM Prisca Aguilar [place], [place] * Feeling bad about yourself - or that you are a failure or have let yourself or your family down Answer Date of Assessment Author Not at all 05/31/2025 11:04 AM Prisca Aguilar [place], [place] * Trouble concentrating on things, such as reading the newspaper or watching television Answer Date of Assessment Author Not at all 05/31/2025 11:04 AM Prisca Aguilar [place], [place] * Moving or speaking so slowly that other people could have noticed? Or the opposite - being so fidgety or restless that you have been moving around a lot more than usual. Answer Date of Assessment Author Not at all 05/31/2025 11:04 AM Prisca Aguilar [place], [place] * Thoughts that you would be better off or hurting yourself in some way Answer Date of Assessment Author Not at all 05/31/2025 11:04 AM Prisca Aguilar [place], [place] * Patient Health Questionnaire-9 Score Answer Date of Assessment Author 0 05/31/2025 11:04 AM Prisca Aguilar [place], [place] * Over the last 2 weeks, how often have you been bothered by any of the following problems? Question Answer Date of Assessment Author Feeling nervous, anxious, or on edge 0 05/31/2025 11:05 AM Prisca Menchaca [place] Not being able to stop or control worrying 0 05/31/2025 11:05 AM Prisca Menchaca MA Worrying too much about different things 0 05/31/2025 11:05 AM Prisca Menchaca [place] Trouble relaxing 0 05/31/2025 11:05 AM Prisca Menchaca [place] Being so restless that it is hard to sit still 0 05/31/2025 11:05 AM Prisca Menchaca [place] Becoming easily annoyed or irritable 0 05/31/2025 11:05 AM Prisca Menchaca [place] Feeling afraid as if something awful might happen 0 05/31/2025 11:05 AM Prisca Egan [place] DIANNE-7 Total Score 0 05/31/2025 11:05 AM Prisca Menchaca [place] documented as of this encounter Miscellaneous Notes * Assessment & Plan Note - Joselin Hogan NP - 05/31/2025 10:15 AM ESTAssociated Problem(s): History of gestational diabetes - Gestational diabetes resolved . - Ordered A1c to assess current glycemic status. Orders: Hemoglobin A1c; Future * Assessment & Plan Note - Joselin Hogan NP - 05/31/2025 10:15 AM ESTAssociated Problem(s): Migraine without aura and without status migrainosus, not intractable - Migraine diagnosis confirmed, longstanding since adolescence. - Prescribed naproxen for acute migraine management. Advised use of NSAID with caffeine for enhanced efficacy. Offered prescription for migraine medication. Orders: naproxen (Naprosyn) 500 MG tablet; 4-6 hrs as needed for migraine. Take with a caffeine beverage documented in this encounter Plan of Treatment Scheduled Orders Name Type Priority Associated Diagnoses Orde r Schedule CBC auto differential Lab Routine Healthcare maintenance Expected: 05/31/2025 (Approximate), Expires: 05/31/2026 Comprehensive Metabolic Panel Lab Routine Healthcare maintenance Expected: 05/31/2025 (Approximate), Expires: 05/31/2026 Hemoglobin A1c Lab Routine History of gestational diabetes Expected: 05/31/2025 (Approximate), Expires: 05/31/2026 HIV-1/2 Antigen and Antibodies, Fourth Generation, with Reflexes Lab Routine Routine screening for STI (sexually transmitted infection) Expected: 05/31/2025 (Approximate), Expires: 05/31/2026 Hepatitis C Antibody with Reflex to HCV, RNA, Quantitative, Real-Time PCR Lab Routine Routine screening for STI (sexually transmitted infection) Expected: 05/31/2025, Expires: 05/31/2026 Vitamin D, 25-Hydroxy, Total, Immunoassay Lab Routine Routine screening for STI (sexually transmitted infection) Expected: 05/31/2025 (Approximate), Expires: 05/31/2026 TSH with Reflex to Free T4 Lab Routine Fatigue, unspecified type Expected: 05/31/2025 (Approximate), Expires: 05/31/2026 hCG, Total, Quantitative Lab Routine Healthcare maintenance Expected: 05/31/2025 (Approximate), Expires: 05/31/2026 Scheduled Referrals Name Type Priority Associated Diagnoses Orde r Schedule Referral to [facility] Dental Adult Outpatient Referral Routine Healthcare maintenance Expected: 05/31/2025 (Approximate), Expires: 05/31/2026 documented as of this encounter Visit Diagnoses Diagnosis Healthcare maintenance- Primary Fatigue, unspecified type Routine screening for STI (sexually transmitted infection) Screening examination for venereal disease History of gestational diabetes Personal history of other genital system and obstetric disorders Migraine without aura and without status migrainosus, not intractable Encounter for initial prescription of contraceptive pills Chronic pain of both knees documented in this encounter Additional Health Concerns Assessment Noted Time PHQ-9 Depression Total Score: 0 05/31/20 11:04 AM EST documented as of this encounter Care Teams Agile Test Lead Relationship Specialty Start Date End Date Joselin Hogan NP [address] [place] [phone] PCP - General Nurse Practitioner 05/31/25 documented as of this encounter
--- OUTSIDE RECORDS SUMMARY | 2025-05-31 11:50 | XMS_ITS | Clinical Summary ---
Author Organization [employer] Address [address] [facility] 7[address] [place] [address] Care Team Providers Care It Generalist Name Role Phone Joselin Hogan NP Primary Care Provider [phone] Allergies No known active allergies Medications naproxen (Naprosyn) 500 MG tabletIndications: Migraine without aura and without status migrainosus, not intractable 4-6 hrs as needed for migraine. Take with a caffeine beverage 30 tablet 2 5 Active desogestrel-ethiny l estradiol (Apri) 0.15-30 MG-MCG tabletIndications: Encounter for initial prescription of contraceptive pills Take 1 tablet by mouth Once per day. Start on first day of menstrual cycle 28 tablet 11 5 05/31/20 26 Active Active Problems Problem Noted Date Diagnosed Date History of gestational diabetes 05/31/2025 Assessment & Plan (05/31/2025 11:37 AM EST): - Gestational diabetes resolved . - Ordered A1c to assess current glycemic status. Orders: Hemoglobin A1c; Future Migraine without aura and wi thout status migrainosus, not intractable 05/31/2025 Assessment & Plan (05/31/2025 11:37 AM EST): - Migraine diagnosis confirmed, longstanding since adolescence. - Prescribed naproxen for acute migraine management. Advised use of NSAID with caffeine for enhanced efficacy. Offered prescription for migraine medication. Orders: naproxen (Naprosyn) 500 MG tablet; 4-6 hrs as needed for migraine. Take with a caffeine beverage Asthma 05/29/2025 Overview (05/31/2025): History as a child Resolved Problems Problem Noted Date Diagnosed Date Resolved Date Gestational diabetes 05/29/2025 025 History of migraine 05/29/2025 05/31/20 25 Encounters Date Type Department Care Team Description 05/31/2025 10:15 AM EST Office Visit [facility] MED[facility]INE [address] [place] [phone] Joselin Hogan NP Healthcare maintenance (Primary Dx); Fatigue, unspecified type; Routine screening for STI (sexually transmitted infection); History of gestational diabetes; Migraine without aura and without status migrainosus, not intractable; Encounter for initial prescription of contraceptive pills; Chronic pain of both knees 05/31/2025 Travel 05/30/2025 Telephone [facility] [address] [place] [address] Joselin Hogan NP Chart Prep 05/24/2025 Travel 04/25/[address] [address] Urban Ayoub MD CHW - New Patient Assistance 03/13/2025 Population Health Risk Score [facility] () Department [address] [place] [phone] Provider, Population Health Generic from Last 3 Months Immunizations Immunization Administration Dates Next Due PPD Test 03/16/2024 Family History Medical History Relation Name Comments Diabetes Father Thyroid cancer Maternal Grandmother Arthritis Mother Relation Name Status Comments Father Maternal Grandmother Mother Social History Tobacco Use Types Packs/Day Years Used Date Smoking Tobacco: Never Passive Smoke Exposure: Never Smokeless Tobacco: Never Tobacco Cessation:Counseling Given: Not Answered Depression Answer Date Recorded Patient Health Questionnaire-9 Score 0 05/31/2025 Patient Health Questionnaire-9 Score 0 05/31/2025 Last PHQ-9: Questionnaire Data Not on file 1 07/31/2024 Housing Stability Answer Date Recorded What is your housing situation today? I have liana eamon 05/31/[address] you li [...] Orientation Straight 05/23/2025 11 :49 AM EST Last Filed Vital Signs Vital Sign Reading [...] Mass Index 27.38 05/31/2025 10:11 AM EST Plan of Treatment Health Maintenance Due Date Last Done Comments HIV Screening 1989 Family Planning (PISQ) 02/10/2004 HPV Vaccines (1 - 3-dose series) 02/10/2004 Hepatitis C Screening 2007 DTaP/Tdap/Td Vaccines (1 - Tdap) 02/10/2008 Hepatitis B Vaccines (1 of 3 - 19+ 3-dose series) 02/10/2008 Pneumococcal Vaccine: Pediatrics (0 to 5 Years) and At-Risk Patients (6 to 49) Years (1 of 2 - PCV) 02/10/2008 Pap Smear 2010 Cervical Cancer Screening 2019 HPV/Cotest 2019 COVID-19 Vaccine (2 - 2024-2 6 season) 2025 05/24/2024 Influenza Vaccine (#1) 2025 Alcohol/Substance Use Screening 05/31/2026 05/31/2025 Depression Screening 05/31/2026 05/31/2025, 05/31/2025 Disability Screening 05/31/2026 05/31/2025 SDOH Screening 05/31/2026 05/31/2025 Tobacco Screening 05/31/2026 05/31/2025 Zoster Vaccines (1 of 2) 2039 RSV Patients and Patients Aged 60 years or older (1 - 1-dose 75+ series) 02/10/2064 HIB Vaccines Aged Out No longer eligi ble based on patient's age to complete this topic Hepatitis A Vaccines Aged Out No long er eligible based on patient's age to complete this topic IPV Vaccines Aged Out No longer eligi ble based on patient's age to complete this topic Meningococcal B Vaccine Aged Out No l onger eligible based on patient's age to complete this topic Meningococcal Vaccine Aged Out No chadwick ramon eligible based on patient's age to complete this topic RSV under 20 months Aged Out No longe r eligible based on patient's age to complete this topic Rotavirus Vaccines Aged Out No longer eligible based on patient's age to complete this topic Insurance [facility] C3 Care Teams It Generalist Relationship Specialty Start Date End Date Joselin Hogan NP [address] [place] [phone] PCP - General Nurse Practitioner 05/31/25
--- OUTSIDE RECORDS SUMMARY | 2025-05-31 11:50 | XMS_ITS | Encounter Summary ---
Author Organization [employer] Address [address] [place] [address] [place], [place] [address] Care Team Providers Care Party Plan Sales Unit Sales Leader Name Role Phone Unavailable Primary Care Provider Unavailabl e Reason for Visit * Reason Onset Date Comments Chart Prep 05/30/2025 Encounter Details Date Type Department Care Team ([facility] st Contact Info) Description 05/30/2025 Telephone [facility] MED[facility]INE [address] [place] [address] Joselin Hogan, ARPIT [address] [place] [address] Chart Prep Social History Tobacco Use Types Packs/Day Years Used Date Smoking Tobacco: Never Assessed Depression Answer Date Recorded Patient Health Questionnaire-9 [...] AM EST documented as of this encounter Miscellaneous Notes * Telephone Encounter - Prisca Santos MA - 05/30/2025 2:27 PM EST Chart Prep Labs: not applicable Images: not applicable Referrals: not applicable Vaccines due: Covid, Flu, PCV20, Tdap, Hep B, and HPV Screenings: HIV, Hep C, Cervical cancer. LMP. Overdue care gaps: SBIRT, SDOH, PHQ-9, DIANNE-7, Oral health screening, and Tobacco documented in this encounter Plan of Treatment Not on file documented as of this encounter Visit Diagnoses Not on filedocumented in this encounter
--- OUTSIDE RECORDS SUMMARY | 2025-05-31 11:50 | XMS_ITS | Encounter Summary ---
Author Organization [employer] Address [address] [facility] 7t [place] [address] Care Team Providers Care Miner Placer Name Role Phone Joselin Hogan NP Primary Care Provider [phone] Encounter Details Date Type Department Care Team (Latest Contact Info) Description 05/31/2025 Travel Social History Tobacco Use Types Packs/Day Years Used Date Smoking Tobacco: Never Passive Smoke Exposure: Never Smokeless Tobacco: Never Depression Answer Date Recorded Patient Health Questionnaire-9 [...] AM EST documented as of this encounter Functional Status * Over the [...] [place] documented as of this encounter Plan of Treatment Not on file documented as of this encounter Visit Diagnoses Not on filedocumented in this encounter Additional Health Concerns Assessment Noted Time PHQ-9 Depression Total Score: 0 05/31/20 11:04 AM EST documented as of this encounter Care Teams Miner Placer Relationship Specialty Start Date End Date Joselin Hogan NP [address] [place] [phone] PCP - General Nurse Practitioner 05/31/25 documented as of this encounter
[2025-05-31 13:01] LABS: MANUAL DIFF FLAG NO
[2025-05-31 13:03] LABS: Hematocrit 40.2 % (37.0-47.0); Hemoglobin 13.6 g/dl (12.0-16.0); Imm Gran Abs Auto 0.01 X10*3/uL (0.00-0.03); Imm Gran Pct Auto 0.1 % (0.0-0.4); Lymphocytes Absolute Auto 2.1 X10*3/uL (1.2-4.9); Mean Corpuscular HGB Conc 33.8 g/dl (31.0-35.0); Mean Corpuscular Hemoglobin 28.1 pg (27.0-33.0); Mean Corpuscular Volume 83.1 fL (80.0-98.0); NRBC Abs Auto 0.000 X10*3/uL (0.0-0.012); NRBC Pct Auto 0.0 /100WBC (0.0-0.2); Platelet Count 236 X10*3/uL (160-400); Red Blood Count 4.84 X10*6/uL (4.20-5.50); White Blood Count 7.3 X10*3/uL (4.8-10.8)
[2025-05-31 13:28] LABS: Alanine Aminotransferase 16 U/L (0-31); Albumin Level 4.6 g/dL (3.5-5.0); Alkaline Phosphatase 61 U/L (39-117); Anion Gap 10 (12-20); Aspartate Amino Transferase 19 U/L (5-31); Blood Urea Nitrogen 8 mg/dL (9-16); Calcium 9.4 mg/dL (8.4-10.2); Carbon Dioxide 26 mmol/L (22-29); Chloride 107 mmol/L (96-108); Estimated Glomerular Filt Rate > 60; Potassium 4.3 mmol/L (3.3-5.1); Sodium 139 mmol/L (135-145); Total Protein 7.7 g/dL (6.5-8.0)
[2025-06-01 08:50] LABS: HIV Num 1 0.07 S/CO (0.00-0.99); ~HepC Num1 0.12 S/CO (0.00-0.79); ~Hepatitis C Antibody Nonreactive (Nonreactive)
== END 2025-05-31 10:57 | disposition home or self-care (01) ==
LOC: HO.HHCL 10:56
DX: Z00.00 Encounter for general adult medical examination without abnormal findings (principal); R53.83 Other fatigue; Z86.32 Personal history of gestational diabetes; Z11.3 Encounter for screening for infections with a predominantly sexual mode of transmission; Z11.4 Encounter for screening for human immunodeficiency virus [HIV]; Z11.59 Encounter for screening for other viral diseases; Z32.00 Encounter for pregnancy test, result unknown
CPT/HCPCS: 36415; 80053; 82306; 83036; 84443; 84702; 85025; 86803; 87389

== ENCOUNTER 2025-06-03 11:41 | Outpatient (REF) | payer MEDICAID, SELFPAY ==
--- OUTSIDE RECORDS SUMMARY | 2025-05-31 10:15 | XMS_ITS | Encounter Summary ---
Author Organization [employer] Address [address] [place] [address] [address] [address] Care Team Providers Care Surgical Garment Assembler Name Role Phone Joselin Hogan NP Primary Care Provider [phone] Reason for Referral * Consultation (Routine) - Authorized Specialty Diagnoses / Procedures Referred By Contlio t Referred To Contact Dental Data Entry Processor / Dentistry Diagnoses Healthcare maintenance Joselin Hogan NP [address] [place] [address] Phone: tel: fax: Referral ID Status Reason Start Date Expiration Date Visits Requested Visits Authorized [id number] Authorized Consult and Treat 05/31/2025 05/31/2026 1 1 Encounter Details Date Type Department Care Team (Latest Contact Info) Description 05/31/2025 10:15 AM EST Office Visit [facility] MEDICINE [address] [place] [phone] Joselin Hogan NP [address] [place], [place] [phone] Healthcare maintenance (Primary Dx); Fatigue, unspecified type; [...] documented in this encounter Plan of Treatment Upcoming Encounters Date Type Department Care Team (Late st Contact Info) Description 07/03/2025 10:00 AM EST Telemedicine [facility] MEDICINE [address] [place] [phone] Joselin Hogan NP [address] [place] [address] Scheduled Orders Name Type Priority Associated Diagnoses Orde r Schedule hCG, Total, Quantitative Lab Routine Healthcare maintenance Expected: 05/31/2025 (Approximate), Expires: 05/31/2026 Scheduled Referrals Name Type Priority Associated Diagnoses Orde r Schedule Referral to [facility] Dental Adult Outpatient Referral Routine Healthcare maintenance Expected: 05/31/2025 (Approximate), Expires: 05/31/2026 documented as of this encounter Procedures Procedure Name Priority Date/Time Associated Diagnosis Comments VITAMIN D,25-OH,TOTAL,IA Routine 05/31/2025 11:00 AM EST Routine screening for STI (sexually transmitted infection) TSH W/REFLEX TO FT4 Routine 05/31/2025 1 1:00 AM EST Fatigue, unspecified type CBC WITH AUTO DIFFERENTIAL Routine 05/31/2025 11:00 AM EST Healthcare maintenance HEPATITIS C AB W/REFL TO HCV RNA, QN, PCR Routine 05/31/2025 11:00 AM EST Routine screening for STI (sexually transmitted infection) HIV 1/2 ANTIGEN/ANTIBODY, FOURTH GENERATION W/RFL Routine 05/31/2025 11:00 AM EST Routine screening for STI (sexually transmitted infection) HEMOGLOBIN A1C Routine 05/31/2025 11:00 AM EST History of gestational diabetes COMPREHENSIVE METABOLIC PANEL Routine 05/31/2025 11:00 AM EST Healthcare maintenance documented in this encounter Results * TSH with Reflex to Free T4 (05/31/2025 11:00 AM EST) TSH reflex Free T4 0.59 0.32 - 4.0 uIU/mL [facility] Blood Venous blood specimen / Unknown 05/31/2025 11:00 AM EST 05/31/2025 12:56 PM EST us Joselin Hogan NP LAB BLOOD ORDERABLES Final Resu lt [facility] [address] [place] [phone] * (ABNORMAL) Vitamin D, 25-Hydroxy, Total, Immunoassay (05/31/2025 11:00 AM EST) Vitamin D 25-OH Total 16.1(L) >30 ng/mL [facility] Comment: Health Based Reference Values*< 20 ng/mL Uckztooal08-98 ng/mL Insufficient> 30 ng/mL Sufficient*Bety MASTERS. N Engl J Med. 2007;357:266-280There is no well-established upper level of normal vitamin Dlevels. Some laboratories use 50 ng/mL as an upper limit ofnormal. However, toxicity is patient-dependent and may occurat any level. Careful correlation with the patient'spresentation is necessary and, if there is concern forvitamin D toxicity, treatment should be consideredirrespective of the serum level.Care must be taken in interpreting Vitamin D results fromdifferent laboratories and methodologies. Published datademonstrated that results from patients undergoinghemodialysis may show a negative bias when tested withvarious automated 25-OH vitamin D assays when compared toLC-MS/MS.When testing samples from patients whose predominant form ofVitamin D is Vitamin D2, such as patients receiving VitaminD2 supplementation, results that are subtherapeutic shouldbe confirmed with another method such as LC-MS/MS. Blood Venous blood specimen / Unknown 05/31/2025 11:00 AM EST 05/31/2025 12:56 PM EST Joselin Hogan NP LAB BLOOD ORDERABLES Final Resu lt Performing Organization Address [facility] Co de Phone Number [facility] [address] [place] [phone] * Hepatitis C Antibody with Reflex to HCV, RNA, Quantitative, Real-Time PCR (05/31/2025 11:00 AM EST) Hepatitis C Antibody Nonreactive Nonreactive [facility] Comment:Antibodies to HCV no t detected; does not exclude early acuteHCV infection. Blood Venous blood specimen / Unknown 05/31/2025 11:00 AM EST 05/31/2025 12:56 PM EST Joselin Hogan NP LAB BLOOD ORDERABLES Final Resu lt Performing Organization Address [facility] Co de Phone Number [facility] [address] [place] [phone] * HIV-1/2 Antigen and Antibodies, Fourth Generation, with Reflexes (05/31/2025 11:00 AM EST) HIV AB/AG Nonreactive Nonreactive [facility] Comment:HIV-1 p24 Ag and/or HIV-1/HIV-2 Ab not detected.A test result that is nonreactive does not exclude thepossibility of exposure to or infection with HIV-1 and/orHIV-2. Nonreactive results in this assay for individualswith prior exposure to HIV-1 and/or HIV-2 may be due toantigen and antibody levels that are below the limit ofdetection of this assay.The [employer] HIV Ag/Ab Combo assay result andsupplemental assay results should be interpreted inconjunction with the patient's clinical presentation,history and other laboratory results. If the results areinconsistent with clinical evidence, additional testing issuggested to confirm the result. Blood Venous blood specimen / Unknown 05/31/2025 11:00 AM EST 05/31/2025 12:56 PM EST Joselin Hogan NP LAB BLOOD ORDERABLES Final Resu lt Performing Organization Address [facility]/ZIP Co de Phone Number [facility] [address] [place] [address] [phone] * Hemoglobin A1c (05/31/2025 11:00 AM EST) Hemoglobin A1c 5.6 <6.0 % [facility] Comment:Hemoglobin A1C Refer ence Range Adults: 4.8 - 6.0 % Non diabetic: < 6.0 % Goal: < 7.0 %Additional Action Suggested: > 8.0 %Note: Hemoglobin A1c results are invalid for patients with abnormal amounts of HbF. Blood transfusions may impact the HbA1c concentration in the patient sample. Estimated Average Glucose 114 mg/dL [facility] Comment:eAG = Estimated ave rage glucose which is %A1C expressed asaverage glucose, using the formula of the [id number]-[id number] Glucose study (ADAG), Diabetes Care, Vol.31,#8,Feb. 2007 Blood Venous blood specimen / Unknown 05/31/2025 11:00 AM EST 05/31/2025 12:56 PM EST Joselin Hogan NP LAB BLOOD ORDERABLES Final Resu lt Performing Organization Address [facility]/ZIP Co de Phone Number [facility] [address] [place] [address] [phone] * (ABNORMAL) Comprehensive Metabolic Panel (05/31/2025 11:00 AM EST) Sodium 139 135 - 145 mmol/L [facility] Potassium 4.3 3.3 - 5.1 mmol/L [facility] Chloride 107 96 - 108 mmol/L [facility] Carbon Dioxide 26 22 - 29 mmol/L [facility] Anion Gap 10(L) 12 - 20 [facility] Urea Nitrogen (BUN) 8(L) 9 - 16 mg/dL [facility] Creatinine, Serum 0.63 0.5 - 1.4 mg/dL [facility] Estimated Glomerular Filt Rate >60 [facility] Comment:Chronic Kidney Disea se: Estimated GFR < 60 mL/min/[id number] Kidney Disease: Estimated GFR < 15 mL/min/1.73m2 Glucose 109 60 - 115 mg/dL [facility] Calcium 9.4 8.4 - 10.2 mg/dL [facility] Bilirubin, Total 0.5 0.0 - 1.0 mg/dL [facility] Aspartate Amino Transferase 19 5 - 31 U/L [facility] Alanine Aminotransferase 16 0 - 31 U/L [facility] Total Protein 7.7 6.5 - 8.0 g/dL [facility] Albumin Level 4.6 3.5 - 5.0 g/dL [facility] Alkaline Phosphatase 61 39 - 117 U/L [facility] Blood Venous blood specimen / Unknown 05/31/2025 11:00 AM EST 05/31/2025 12:56 PM EST us Joselin Hogan NP LAB BLOOD ORDERABLES Final Resu lt [facility] [address] [place] [phone] * CBC auto differential (05/31/2025 11:00 AM EST) White Blood Count 7.3 4.8 - 10.8 X10*3/uL [facility] Red Blood Count 4.84 4.20 - 5.50 X10*6/uL [facility] Hemoglobin 13.6 12.0 - 16.0 g/dl [facility] Hematocrit 40.2 37.0 - 47.0 % [facility] Mean Corpuscular Volume 83.1 80.0 - 98.0 fL [facility] Mean Corpuscular Hemoglobin 28.1 27.0 - 33.0 pg [facility] Mean Corpuscular HGB Conc 33.8 31.0 - 35.0 g/dl [facility] Red Cell Distribution Width 12.5 11.0 - 16.0 % [facility] Platelet Count 236 160 - 400 X10*3/uL [facility] Mean Platelet Volume 12.1 9.4 - 12.3 fL [facility] Neutrophils Percent Auto 61.7 45 - 73 % [facility] Imm Gran Pct Auto 0.1 0.0 - 0.4 % [facility] Lymphocytes Percent Auto 28.0 20 - 40 % [facility] Monocytes Percent Auto 7.9 2 - 11 % [facility] Eosinophils Percent Auto 1.5 0 - 4 % [facility] Basophils Percent Auto 0.8 0 - 2 % [facility] NRBC Pct Auto 0.0 0.0 - 0.2 /100WBC [facility] Neutrophils Absolute Auto 4.5 2.0 - 8.3 x10*3/uL [facility] Imm Gran Abs Auto 0.01 0.00 - 0.03 X10*3/uL [facility] Lymphocytes Absolute Auto 2.1 1.2 - 4.9 X10*3/uL [facility] Monocytes Absolute Auto 0.6 0.1 - 1.2 X10*3/uL [facility] Eosinophils Absolute Auto 0.1 0.0 - 0.4 X10*3/uL [facility] Basophils Absolute Auto 0.1 0.0 - 0.2 X10*3/uL [facility] NRBC Abs Auto 0.000 0.0 - 0.012 X10*3/uL [facility] Blood Venous blood specimen / Unknown 05/31/2025 11:00 AM EST 05/31/2025 12:56 PM EST us Joselin Hogan NP LAB BLOOD ORDERABLES Final Resu lt [facility] [address] [place] [phone] documented in this encounter Visit Diagnoses Diagnosis Healthcare maintenance- [...] documented as of this encounter Care Teams Surgical Garment Assembler Relationship Specialty Start Date End Date Joselin Hogan NP [address] [place] [phone] PCP - General Nurse Practitioner 05/31/25 documented as of this encounter
--- OUTSIDE RECORDS SUMMARY | 2025-06-03 15:32 | XMS_ITS | Encounter Summary ---
Author Organization [employer] Address [address] [facility] [address]t [place] [address] Care Team Providers Care Dental Appliance Mechanic Name Role Phone Joselin Hogan NP Primary Care Provider [phone] Encounter Details Date Type Department Care Team [...] as of this encounter Plan of Treatment Upcoming Encounters Date Type Department Care Team (Late st Contact Info) Description 07/03/2025 10:00 AM EST Telemedicine [facility] MEDICINE [address] [place] [address] Joselin Hogan NP [address] [place] [address] documented as of this encounter Visit Diagnoses Not on filedocumented in this encounter Additional Health Concerns Assessment Noted Time PHQ-9 Depression Total Score: 0 05/31/20 11:04 AM EST documented as of this encounter Care Teams Dental Appliance Mechanic Relationship Specialty Start Date End Date Joselin Hogan NP [address] [place] [phone] PCP - General Nurse Practitioner 05/31/25 documented as of this encounter
--- OUTSIDE RECORDS SUMMARY | 2025-06-03 15:32 | XMS_ITS | Encounter Summary ---
Author Organization [employer] Address [address] [place] [address] [address], [place] [address] Care Team Providers Care Bottle Caser Name Role Phone Unavailable Primary Care Provider Unavailabl e Reason for Visit * Reason Onset Date Comments Chart Prep 05/30/2025 Encounter Details Date Type Department Care Team ([facility] st Contact Info) Description 05/30/2025 Telephone [facility]INE [address] [place] [address] Joselin Hogan, ARPIT [address] [place] [address] Chart Prep Social History Tobacco Use Types [...] Upcoming Encounters Date Type Department Care Team ([facility] Contact Info) Description 07/03/2025 10:00 AM EST Telemedicine [facility] MEDICINE [address] [place] [phone] Joselin Hogan NP [address] [place] [address] documented as of this encounter Visit Diagnoses Not on filedocumented in this encounter
--- OUTSIDE RECORDS SUMMARY | 2025-06-03 15:32 | XMS_ITS | Clinical Summary ---
Author Organization [employer] Address [address] [facility] [address]t [place] [address] Care Team Providers Care Wine Blender Name Role Phone Joselin Hogan NP Primary Care Provider [phone] Allergies No known active allergies Medications desogestrel-ethi nyl estradiol (Apri) 0.15-30 MG-MCG tabletIndication s:Encounter for initial prescription of contraceptive pills Take 1 tablet by mouth Once per day. Start on first day of menstrual cycle 28 tablet 11 05/31/20 25 026 Active naproxen (Naprosyn) 500 MG tabletIndication s:Migraine without aura and without status migrainosus, not intractable TAKE 1 TABLET BY MOUTH EVERY 12 HOURS NEEDED FOR MIGRAINE 30 tablet 06/02/20 25 Active naproxen (Naprosyn) 500 MG tabletIndication s:Migraine without aura and without status migrainosus, not intractable 4-6 hrs as needed for migraine. Take with a caffeine beverage 30 tablet 2 05/31/20 25 025 Discontinued(R eorder (will not trigger notification to Pharmacy)) Active Problems Problem Noted Date Diagnosed Date [...] Encounters Date Type Department Care Team Description 06/02/2025 Results Follow-Up [facility] MEDICINE [address] [place] [phone] Joselin Hogan NP CBC auto differential, Comprehensive Metabolic Panel, Hemoglobin A1c, Additional followed-up results: 4 05/31/2025 10:15 AM EST Office Visit [facility] MEDICINE [address] [place] [phone] Joselin Hogan NP Healthcare maintenance (Primary Dx); Fatigue, unspecified type; Routine screening for STI (sexually transmitted infection); History of gestational diabetes; Migraine without aura and without status migrainosus, not intractable; Encounter for initial prescription of contraceptive pills; Chronic pain of both knees 05/31/2025 Refill [facility] & PEDS [address] [place] [address] Joselin Hogan NP Migraine without aura and without status migrainosus, not intractable 05/31/2025 Travel 05/30/[address] [address] Joselin Hogan NP Chart Prep 05/24/2025 Travel 04/25/[address] [address] Urban Ayoub MD CHW - New Patient Assistance 03/13/2025 Population Health Risk Score [facility] (C[facility] Department [address] [phone] Provider, Population Health Generic from Last 3 [...] 05/31/2025 10:11 AM EST Plan of Treatment Upcoming Encounters Date Type Department Care Team (Late st Contact Info) Description 07/03/2025 10:00 AM EST Telemedicine [facility] MEDICINE [address] [place], [place] [phone] Joselin Hogan, ARPIT [address] [place], [place] [phone] Health Maintenance Due Date Last Done Comments Family Planning (PISQ) 02/10/2004 HPV Vaccines (1 - 3-dose series) 02/10/2004 DTaP/Tdap/Td Vaccines (1 - Tdap) 02/10/2008 Hepatitis [...] older (1 - 1-dose 75+ series) 02/10/2064 HIV Screening Completed 05/31/2025 Hepatitis C Screening Completed 05/31/2025 HIB Vaccines Aged Out No longer eligi [...] on patient's age to complete this topic Procedures Procedure Name Priority Date/Time Associated Diagnosis Comments TSH W/REFLEX TO FT4 Routine 05/31/2025 1 1:00 AM EST Fatigue, unspecified type VITAMIN D,25-OH,TOTAL,IA Routine 05/31/2025 11:00 AM EST Routine screening for STI (sexually transmitted infection) HEPATITIS C AB W/REFL TO HCV RNA, QN, PCR Routine 05/31/2025 11:00 AM EST Routine screening for STI (sexually transmitted infection) HIV 1/2 ANTIGEN/ANTIBODY, FOURTH GENERATION W/RFL Routine 05/31/2025 11:00 AM EST Routine screening for STI (sexually transmitted infection) HEMOGLOBIN A1C Routine 05/31/2025 11:00 AM EST History of gestational diabetes COMPREHENSIVE METABOLIC PANEL Routine 05/31/2025 11:00 AM EST Healthcare maintenance CBC WITH AUTO DIFFERENTIAL Routine 05/31/2025 11:00 AM EST Healthcare maintenance from Last 3 Months Results * (ABNORMAL) Vitamin D, 25-Hydroxy, Total, Immunoassay (05/31/2025 11:00 AM EST) Vitamin D 25-OH Total 16.1(L) >30 ng/mL [facility] Comment: Health Based Reference Values*< 20 ng/mL [id number] ng/mL Insufficient> 30 ng/mL Sufficient*Bety MASTERS. N [...] ORDERABLES Final Resu lt Performing Organization Address [facility]/ZIP Co de Phone Number [facility] [address] [place] [phone] * TSH with Reflex to Free T4 (05/31/2025 11:00 AM EST) Pathologist [facility] TSH reflex Free T4 0.59 0.32 - 4.0 uIU/mL [facility] Blood Venous blood specimen / Unknown 05/31/2025 11:00 AM EST 05/31/2025 12:56 PM EST us Joselin Hogan NP LAB BLOOD ORDERABLES Final Resu lt Performing Organization Address City/[facility]/ZIP Co de Phone Number [facility] [address] [place] [phone] * CBC auto differential (05/31/2025 11:00 AM EST) White Blood Count 7.3 4.8 - 10.8 X10*3/uL [facility] Red Blood Count 4.84 4.20 - 5.50 X10*6/uL [facility] Hemoglobin 13.6 12.0 - 16.0 g/dl [facility] Hematocrit 40.2 37.0 - 47.0 % [facility] Mean Corpuscular Volume 83.1 80.0 - 98.0 fL [facility] Mean Corpuscular Hemoglobin 28.1 27.0 - 33.0 pg [facility] Mean Corpuscular HGB Conc 33.8 31.0 - 35.0 g/dl [facility] Red Cell Distribution Width 12.5 11.0 - 16.0 % [facility] Platelet Count 236 160 - 400 X10*3/uL [facility] Mean Platelet Volume 12.1 9.4 - 12.3 fL [facility] Neutrophils Percent Auto 61.7 45 - 73 % [facility] Imm Gran Pct Auto 0.1 0.0 - 0.4 % [facility] Lymphocytes Percent Auto 28.0 20 - 40 % [facility] Monocytes Percent Auto 7.9 2 - 11 % [facility] Eosinophils Percent Auto 1.5 0 - 4 % [facility] Basophils Percent Auto 0.8 0 - 2 % [facility] NRBC Pct Auto 0.0 0.0 - 0.2 /100WBC [facility] Neutrophils Absolute Auto 4.5 2.0 - 8.3 x10*3/uL [facility] Imm Gran Abs Auto 0.01 0.00 - 0.03 X10*3/uL [facility] Lymphocytes Absolute Auto 2.1 1.2 - 4.9 X10*3/uL [facility] Monocytes Absolute Auto 0.6 0.1 - 1.2 X10*3/uL [facility] Eosinophils Absolute Auto 0.1 0.0 - 0.4 X10*3/uL [facility] Basophils Absolute Auto 0.1 0.0 - 0.2 X10*3/uL [facility] NRBC Abs Auto 0.000 0.0 - 0.012 X10*3/uL [facility] Blood Venous blood specimen / Unknown 05/31/2025 11:00 AM EST 05/31/2025 12:56 PM EST Joselin Hogan NP LAB BLOOD ORDERABLES Final Resu lt Performing Organization Address [facility] de Phone Number [facility] [address] [place] [phone] * Hepatitis C Antibody with Reflex to HCV, RNA, Quantitative, Real-Time PCR (05/31/2025 11:00 AM EST) Hepatitis C Antibody Nonreactive Nonreactive [facility] Comment:Antibodies to HCV no t detected; does not exclude early acuteHCV infection. Blood Venous blood specimen / Unknown 05/31/2025 11:00 AM EST 05/31/2025 12:56 PM EST Joselin Hogan NP LAB BLOOD ORDERABLES Final Resu lt Performing Organization Address [facility] de Phone Number [facility] [address] [place] [phone] * HIV-1/2 Antigen and Antibodies, Fourth Generation, with Reflexes (05/31/2025 11:00 AM EST) HIV AB/AG Nonreactive Nonreactive [facility] Comment:HIV-1 p24 Ag and/or HIV-1/HIV-2 Ab not detected.A test result that is nonreactive does not exclude thepossibility of exposure to or infection with HIV-1 and/orHIV-2. Nonreactive results in this assay for individualswith prior exposure to HIV-1 and/or HIV-2 may be due toantigen and antibody levels that are below the limit ofdetection of this assay.The [employer] HIV Ag/Ab Combo assay result andsupplemental assay results should be interpreted inconjunction with the patient's clinical presentation,history and other laboratory results. If the results areinconsistent with clinical evidence, additional testing issuggested to confirm the result. Blood Venous blood specimen / Unknown 05/31/2025 11:00 AM EST 05/31/2025 12:56 PM EST Joselin Hogan NP LAB BLOOD ORDERABLES Final Resu lt Performing Organization Address [facility] Co de Phone Number [facility] [address] [place] [phone] * Hemoglobin A1c (05/31/2025 11:00 AM EST) Hemoglobin A1c 5.6 <6.0 % [facility] Comment:Hemoglobin A1C Refer ence Range Adults: 4.8 - 6.0 % Non diabetic: < 6.0 % Goal: < 7.0 %Additional Action Suggested: > 8.0 %Note: Hemoglobin A1c results are invalid for patients with abnormal amounts of HbF. Blood transfusions may impact the HbA1c concentration in the patient sample. Estimated Average Glucose 114 mg/dL [facility] Comment:eAG = Estimated ave rage glucose which is %A1C expressed asaverage glucose, using the formula of the Z4Y-OauumveDgzeksw Glucose study (ADAG), Diabetes Care, Vol.31,#8,Feb. 2007 Blood Venous blood specimen / Unknown 05/31/2025 11:00 AM EST 05/31/2025 12:56 PM EST us Joselin Hogan NP LAB BLOOD ORDERABLES Final Resu lt Performing Organization Address [facility] Co de Phone Number [facility] [address] [place] [phone] * (ABNORMAL) Comprehensive Metabolic Panel (05/31/2025 11:00 AM EST) Sodium 139 135 - 145 mmol/L [facility] Potassium 4.3 3.3 - 5.1 mmol/L [facility] Chloride 107 96 - 108 mmol/L [facility] Carbon Dioxide 26 22 - 29 mmol/L [facility] Anion Gap 10(L) 12 - 20 [facility] Urea Nitrogen (BUN) 8(L) 9 - 16 mg/dL [facility] Creatinine, Serum 0.63 0.5 - 1.4 mg/dL [facility] Estimated Glomerular Filt Rate >60 [facility] Comment:Chronic Kidney Disea se: Estimated GFR < 60 mL/min/1.02n4Pygdce Kidney Disease: Estimated GFR < 15 mL/min/1.73m2 Glucose 109 60 - 115 mg/dL [facility] Calcium 9.4 8.4 - 10.2 mg/dL [facility] Bilirubin, Total 0.5 0.0 - 1.0 mg/dL [facility] Aspartate Amino Transferase 19 5 - 31 U/L [facility] Alanine Aminotransferase 16 0 - 31 U/L [facility] Total Protein 7.7 6.5 - 8.0 g/dL [facility] Albumin Level 4.6 3.5 - 5.0 g/dL [facility] Alkaline Phosphatase 61 39 - 117 U/L [facility] Blood Venous blood specimen / Unknown 05/31/2025 11:00 AM EST 05/31/2025 12:56 PM EST Joselin Hogan NP LAB BLOOD ORDERABLES Final Resu lt Performing Organization Address City/State/[facility] Co de Phone Number [facility] [address] [place] [address] [phone] from Last 3 Months Insurance [facility] C3 Care Teams Wine Blender Relationship Specialty Start Date End Date Joselin Hogan NP [address] [place] [phone] PCP - General Nurse Practitioner 05/31/25
--- OUTSIDE RECORDS SUMMARY | 2025-06-03 15:32 | XMS_ITS | Encounter Summary ---
Author Organization [employer] Address [address] [facility] 7 [place] [address] Care Team Providers Care Inspector Grain Mill Products Name Role Phone Joselin Hogan NATURAL SCIENCES PROFESSOR Primary Care Provider [phone] Reason for Visit * Reason Onset Date Comments Med Refill 05/31/2025 Encounter Details Date Type Department Care Team ([facility] st Contact Info) Description 05/31/2025 Refill [facility] [address] [place] [address] Joselin Hogan, ARPIT [address] [place] [address] Migraine without aura and without status migrainosus, not intractable Social History Tobacco Use Types Packs/Day Years [...] encounter Miscellaneous Notes * Telephone Encounter - Joselin Hogan NP - 06/02/2025 12:01 PM EST Approving, but needs appt for additional refills. * Telephone Encounter - Mamie Jc LPN - 05/31/2025 3:24 PM EST SIG edited please review. * Telephone Encounter - Joselin Hogan NP - 05/31/2025 3:23 PM EST 1 tab q12 hrs as needed for migraine * Telephone Encounter - Mamie Jc LPN - 05/31/2025 3:05 PM EST Please see note from pharmacy; how many tabs? Max dose typically 1 tablet every 12 hours. documented in this encounter Plan of Treatment Upcoming Encounters Date Type Department Care Team (Late st Contact Info) Description 07/03/2025 10:00 AM EST Telemedicine [facility] MEDICINE [address] [place] [phone] Joselin Hogan NP [address] [place] [address] documented as of this encounter Visit Diagnoses Diagnosis Migraine without aura and without status migrainosus, not intractable documented in this encounter Additional Health Concerns Assessment Noted Time PHQ-9 Depression Total Score: 0 05/31/20 11:04 AM EST documented as of this encounter Care Teams Inspector [employer] Relationship Specialty Start Date End Date Joselin Hogan NP [address] [place] [address] PCP - General Nurse Practitioner 05/31/25 documented as of this encounter
--- OUTSIDE RECORDS SUMMARY | 2025-06-03 15:32 | XMS_ITS | Encounter Summary ---
Author Organization [employer] Address [address] [place] [address] [address] [place] [address] Care Team Providers Care Lehr Operator Name Role Phone Joselin Hogan NP Primary Care Provider [phone] Encounter Details Date Type Department Care Team (Latest Contact Info) Description 06/02/2025 Results Follow-Up [facility] [address] [place] [address] Joselin Hogan, BRICK SIDING APPLICATOR [address] [place] [address] CBC auto differential, Comprehensive Metabolic Panel, Hemoglobin A1c, Additional followed-up results: 4 Social History Tobacco Use Types Packs/Day Years [...] encounter Miscellaneous Notes * Telephone Encounter - Marga Owen RN - 06/03/2025 10:13 AM EST Tc to pt to let them know per PCP Please call the patient and let her know that most of her labs were normal, but her vitamin D is a bit low. I recommend she take a vitamin D supplement of 5,000 international units daily, and recheck her vitamin D level in about 3 months. . Pt also wanted to knowabout their test status. Pt reports they went to the lab on Tuesday and did blood work. Ptadvised the results are not in yet but we'll call the lab too find out. Tc to our lab, discussed with Ana who reports a new blood sample is not needed but [place] [facility] [place] on why the blood work is still pending. Reel Repairer provided extension and is awaiting call back.. * Telephone Encounter - Marga Owen RN - 06/03/2025 10:13 AM EST ----- Message from Joselin Hogan sent at 06/02/2025 12:18 PM EST ----- Please call the patient and let her know that most of her labs were normal, but her vitamin D is a bit low. I recommend she take a vitamin D supplement of 5,000 international units daily, and recheck her vitamin D level in about 3 months. ----- Message ----- From: Interface, Lab Results In Sent: 05/31/2025 1:04 PM EST To: Joselin Hogan NP documented in this encounter Plan of Treatment Upcoming Encounters Date Type Department Care Team (Late st Contact Info) Description 07/03/2025 10:00 AM EST Telemedicine [facility] [address] [place] [address] Joselin Hogan NP [address] [place] [address] Scheduled Orders Name Type Priority Associated Diagnoses Orde r Schedule Vitamin D, 25-Hydroxy, Total, Immunoassay Lab Routine Vitamin D deficiency Expected: 09/02/2025 (Approximate), Expires: 06/02/2026 documented as of this encounter Visit Diagnoses Diagnosis Vitamin D deficiency- Primary documented in this encounter Additional Health Concerns Assessment Noted Time PHQ-9 Depression Total Score: 0 05/31/20 11:04 AM EST documented as of this encounter Care Teams Lehr Operator Relationship Specialty Start Date End Date Joselin Hogan NP [address] [place] [id number] PCP - General Nurse Practitioner 05/31/25 documented as of this encounter
== END 2025-06-03 11:42 | disposition home or self-care (01) ==
LOC: HO.HHCL 11:41
DX: Z00.00 Encounter for general adult medical examination without abnormal findings (principal)
CPT/HCPCS: 36415; 84702